=== PATIENT | female | born 1985 | race Caucasian/White ===

== ENCOUNTER 2018-01-15 14:54 | Emergency (ER) | payer OTHER ==
--- NOTE | 2018-01-15 16:48 | ER Document Report ---
ED Medical Screen (RME) - General Chief Complaint: Vaginal Bleeding Stated Complaint: VAGINAL BLEEDING Time Seen by Provider: 01/15/18 16:39 Mode of Arrival: Ambulatory Information source: Patient TRAVEL OUTSIDE OF THE [place] IN LAST 30 DAYS: No - HPI Patient complains to provider of: Vaginal bleeding Onset: Other - This 32-year-old female presents with painless vaginal bleeding which began yesterday after some brief episodes of period cramps. She has never had anything like this in the past, her previous period was as recently as about a week and a half ago this is markedly abnormal for her. Given that she is had no history of abnormal uterine bleeding in the past she is very concerned about this. Denies any trauma, abdominal pain, diarrhea nausea constipation dysuria blood thinner use or other symptoms. - Related Data Allergies/Adverse Reactions: No Known Allergies Allergy (Verified 01/15/18 16:43) Past Medical History - General Last Menstrual Period: 12/28/2017 - Social History Chew tobacco use (# tins/day): No Frequency of alcohol use: None Drug Abuse: None Renal/ Medical History: Denies: Hx Peritoneal Dialysis Physical Exam - Vital signs Vitals: Temp Pulse Resp BP Pulse Ox 98.7 F 102 H 16 134/90 H 100 01/15/18 15:17 01/15/18 15:17 01/15/18 15:17 01/15/18 15:17 01/15/18 15:17 Course - Re-evaluation Re-evalutation: 01/15/18 16:47 This 32-year-old female presents for evaluation of painless vaginal bleeding about a week and a half after initial.. Her is no longer potent, he has had a vasectomy and she has not been sexually active with anyone else. She is not having any active pain at this time but noted that it was initially dried brown blood. Nothing seemed to make the bleeding any better or worse, during today she had an episode in which she had a large volume of clots the past 3 which were bright red. Bleed at this point would be a benefit from urinalysis urine culture and probable pelvic exam. May require swabs for possible infection. - Vital Signs Vital signs: Temp Pulse Resp BP Pulse Ox 98.7 F 102 H 16 134/90 H 100 01/15/18 15:17 01/15/18 15:17 01/15/18 15:17 01/15/18 15:17 01/15/18 15:17
[2018-01-15 17:47] LABS: APPEARANCE,URINE SLIGHTLY-CLOUDY; BILIRUBIN,URINE NEGATIVE (NEGATIVE); COLOR,URINE RED; GLUCOSE, URINE NEGATIVE (NEGATIVE); KETONES,URINE NEGATIVE (NEGATIVE); LEUKOCYTE ESTERASE,URINE TRACE (NEGATIVE); NITRITE,URINE NEGATIVE (NEGATIVE); PROTEIN,URINE 100 mg/dL (NEGATIVE); URINE SPECIFIC GRAVITY 1.008; UROBILINOGEN,URINE NEGATIVE mg/dL (<2.0)
--- NOTE | 2018-01-15 20:06 | ER Document Report ---
ED GI/ - General Chief Complaint: Vaginal Bleeding Stated Complaint: VAGINAL BLEEDING Time Seen by Provider: 01/15/18 16:39 Mode of Arrival: Ambulatory Information source: Patient Notes: 32-year-old female presented ED for complaint of vaginal bleeding with no pain. She states it began yesterday after having a brief episodes of cramps. She states he has never had bleeding between her peers before. She states her last menstrual period was on 02 January. She denies any history of any abnormal uterine bleeding or any other problems concerning her cycle or very female organs. Is alert and oriented respirations regular and unlabored speaking in full sentences. TRAVEL OUTSIDE OF THE [place] IN LAST 30 DAYS: No - HPI Patient complains to provider of: Vaginal bleeding Onset: Yesterday Timing/Duration: Intermittent Quality of pain: Cramping - She had a little bit of cramping yesterday none today Severity at maximum: Mild Severity in ED: None Pain Level: Denies Vaginal bleeding (Compared to normal period): [employer] LMP: 01/02/2018 Associated symptoms: Other - Vaginal bleeding Exacerbated by: Denies Relieved by: Denies Similar symptoms previously: No Recently seen / treated by doctor: No - Related Data Allergies/Adverse Reactions: No Known Allergies Allergy (Verified 01/15/18 16:43) Past Medical History - General Information source: Patient Last Menstrual Period: 12/28/2017 - Social History Smoking Status: Never Smoker Cigarette use (# per day): No Chew tobacco use (# tins/day): No Smoking Education Provided: No Frequency of alcohol use: None Drug Abuse: None Lives with: Family Family History: Reviewed & Not Pertinent Patient has suicidal ideation: No Patient has homicidal ideation: No - Past Medical History Cardiac Medical History: Reports: None Pulmonary Medical History: Reports: None EENT Medical History: Reports: None Neurological Medical History: Reports: None Endocrine Medical History: Reports: None Renal/ Medical History: Reports: None Malignancy Medical History: Reports: None GI Medical History: Reports: None Musculoskeletal Medical History: Reports None Skin Medical History: Reports None Psychiatric Medical History: Reports: None Traumatic Medical History: Reports: None Infectious Medical History: Reports: None Surgical Hx: Negative Past Surgical History: Reports: None - Immunizations Immunizations up to date: Yes Hx Diphtheria, Pertussis, Tetanus Vaccination: Yes Review of Systems - Review of Systems Constitutional: No symptoms reported EENT: No symptoms reported Cardiovascular: No symptoms reported Respiratory: No symptoms reported Gastrointestinal: No symptoms reported Genitourinary: No symptoms reported Female Genitourinary: Vaginal bleeding Musculoskeletal: No symptoms reported Skin: No symptoms reported Hematologic/Lymphatic: No symptoms reported Neurological/Psychological: No symptoms reported -: Yes All other systems reviewed and negative Physical Exam - Vital signs Vitals: Temp Pulse Resp BP Pulse Ox 98.7 F 102 H 16 134/90 H 100 01/15/18 15:17 01/15/18 15:17 01/15/18 15:17 01/15/18 15:17 01/15/18 15:17 Interpretation: Normal - General General appearance: Appears well, Alert - HEENT Head: Normocephalic, Atraumatic Eyes: Normal Pupils: PERRL - Respiratory Respiratory status: No respiratory distress Chest status: Nontender Breath sounds: Normal Chest palpation: Normal - Cardiovascular Rhythm: Regular Heart sounds: Normal auscultation Murmur: No - Abdominal Inspection: Normal Distension: No distension Bowel sounds: Normal Tenderness: Nontender Organomegaly: No organomegaly - Genitourinary External exam: Normal Speculum exam: Normal Vaginal bleeding: Moderate Bimanuel exam: Normal - Back Back: Normal, Nontender - Extremities General upper extremity: Normal inspection, Nontender, Normal color, Normal ROM , Normal temperature General lower extremity: Normal inspection, Nontender, Normal color, Normal ROM , Normal temperature, Normal weight bearing. No: Tesha's sign - Neurological Neuro grossly intact: Yes Cognition: Normal Orientation: AAOx4 Luisa Coma Scale Eye Opening: Spontaneous Luisa Coma Scale Verbal: Oriented Luisa Coma Scale Motor: Obeys Commands [place] Coma Scale Total: 15 Speech: Normal Motor strength normal: LUE, RUE, LLE, RLE Sensory: Normal - Psychological Associated symptoms: Normal affect, Normal mood - Skin Skin Temperature: Warm Skin Moisture: Dry Skin Color: Normal Course - Re-evaluation Re-evalutation: 01/16/18 02:28 Patient is very concerned and hysterical that she was having vaginal bleeding. Her labs and exam discussed with her and reassured her that this was not that unusual for women to have this. Patient was instructed that if the bleeding gets continued that she should follow-up with her primary doctor or an [facility]. Patient was more calm after discussion. Patient verbalized understanding and agreement with treatment plan. - Vital Signs Vital signs: Temp Pulse Resp BP Pulse Ox 98.5 F 84 16 111/76 100 01/15/18 20:08 01/15/18 20:08 01/15/18 20:08 01/15/18 20:08 01/15/18 20:08 - Laboratory Laboratory results interpreted by me: 01/15/18 16:20 Urine Protein 100 H Urine Blood LARGE H Ur Leukocyte Esterase TRACE H Discharge - Discharge Clinical Impression: Vaginal bleeding Condition: Stable Disposition: HOME, SELF-CARE Additional Instructions: VAGINAL BLEEDING: You are having an episode of abnormal bleeding. Causes of abnormal vaginal bleeding can include miscarriage or tubal , tumors such as cancer or benign fibroids, medication effects, or hormone imbalance. Testing can eliminate unsuspected , tumors, or infection as a cause. "Dysfunctional uterine bleeding" is due to hormone imbalance, and is especially common at times when the normal cycle is disturbed -- whether by recent , use of control pills or hormones, or impending menopause. If the bleeding is innocent, most commonly a short course of hormones is given to restore the uterus to normal. Sometimes, the normal menstrual cycle corrects itself naturally. Sometimes , brief hormone therapy, or even a D&C is required. Your physician will advise you. Treatment for anemia may be required if bleeding is severe. You should rest and avoid intercourse until the bleeding is controlled. Call the doctor or return for re-examination if you feel faint, have increasing pain, or have a major increase in the amount of bleeding. NORMAL EXAM AND WORKUP: At this time, except for vaginal bleeding, your examination and workup show no significant abnormality. No significant abnormal physical findings were noted. All laboratory, EKG, and imaging (x-ray, CT scans, ultrasound) studies that were ordered show no significant abnormality. Although your examination and all studies that were ordered showed no significant abnormal finding, there are no examinations and no studies that are 100% accurate. There is always the possibility that some abnormality could exist and not be detected with physical examination or within the limits and capabilities of laboratory and other studies. You should return or follow up as you were instructed on your visit today for further evaluation if your symptoms do not resolve. FOLLOW-UP CARE: If you have been referred to a physician for follow-up care, call the physician s office for an appointment as you were instructed or within the next two days. If you experience worsening or a significant change in your symptoms (very heavy bleeding with large clots of blood, passage of tissue, more severe abdominal / pelvic pain or cramping, feeling faint or severe weakness, fever, etc.), notify the physician immediately or return to the Emergency Department at any time for re-evaluation. OBSTETRIC[facility]GYNECOLOGIC ([facility]-[employer]EL [employer]PER[employer]) [facility] [place]: [facility] [address] [place] [address] [phone] Forms: Elevated Blood Pressure Referrals: [facility] [Provider Group] - Follow up as needed
[2018-01-15 20:09] VITALS: BP 111/76
== END 2018-01-15 20:09 | disposition home or self-care (01) ==
LOC: ER 14:54
DX: N93.9 Abnormal uterine and vaginal bleeding, unspecified (principal)
CPT/HCPCS: 81001; 81025; 99284